=== PATIENT | male | born 1980 | race American Indian/Alaskan Native ===

== ENCOUNTER 2017-06-05 20:44 | Emergency (ER) | payer SELFPAY ==
[2017-06-05] MEDS ORDERED: TORADOL IM ONE (21:32)
[2017-06-05] MEDS ORDERED: DECADRON IM ONE (21:32)
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
[2017-06-05 22:32] VITALS: BP 155/75
== END 2017-06-05 22:32 | disposition home or self-care (01) ==
LOC: ED 20:44
DX: S16.1XXA Strain of muscle, fascia and tendon at neck level, initial encounter (principal); M62.838 Other muscle spasm; G56.92 Unspecified mononeuropathy of left upper limb; F17.210 Nicotine dependence, cigarettes, uncomplicated; X58.XXXA Exposure to other specified factors, initial encounter; Y93.89 Activity, other specified; Y92.89 Other specified places as the place of occurrence of the external cause; Y99.8 Other external cause status
CPT/HCPCS: 96372; 99282; J1100; J1885